=== PATIENT | female | born 1950 | race Caucasian/White ===

== ENCOUNTER → 2024-08-17 07:54 | Outpatient (CLI) | payer MEDICARE, OTHER, SELFPAY ==
--- NOTE | 2024-08-17 | DI.MRI.S_ITS ---
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 After the administration of contrast, axial/sagittal/coronal T1 spin echo with fat saturation through the left humerus. COMPARISON: [facility], CR, XR SHOULDER 2+ VIEWS LEFT, 07/13/2024, 10:40. FINDINGS: Image quality: Excellent. Bones: Healing fracture is noted at the distal clavicle with very mild edema, not well seen on this exam that is tailored for evaluation of the humerus. No acute humeral fracture. No suspicious osseous lesion or osseous mass. No suspicious postcontrast osseous enhancement in the humerus. Soft tissues: Hyperintense signal is seen adjacent to the left posterior upper ribs on coronal STIR and fat suppressed T1-weighted sequences, which may be related to inhomogeneous fat saturation related to adjacent aerated lung versus non artifactual signal of uncertain etiology, possibly soft tissue or osseous edema including possibly a nondisplaced rib fracture. No enhancing soft tissue mass. No significant axillary lymphadenopathy. The visualized musculature is normal in signal intensity and bulk. The internal structures of the elbow and shoulder are not well evaluated on this exam. IMPRESSION: 1. No significant osseous abnormality in the humerus. No suspicious osseous mass. 2. Healing fracture of the distal clavicle with mild residual edema. 3. Abnormal signal in the region of the posterior left 2nd rib is partially seen at the margins of the field of view of this exam, and may be artifactual related to adjacent aerated lung versus secondary to a nondisplaced rib fracture or other osseous or soft tissue lesion. Approved by: Rob Ruiz M.D. on 08/17/2024 at 12:26
--- NOTE | 2024-08-17 | DI.MRI.S_ITS ---
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 [facility], CR, XR CLAVICLE LEFT, 07/13/2024, 10:40. [facility], CR, XR SHOULDER 2+ VIEWS LEFT, 07/13/2024, 10:40. FINDINGS: Image quality: Fair; motion artifact and poor signal to noise ratio on some sequences limits evaluation. Additionally, the patient was unable to tolerate the full exam due to pain. As a result, intravenous contrast was not administered for this examination. Bones: Mild marrow edema is present at the distal clavicle (12/16; 7/4; 10/17). Additional marrow edema is present around the left 2nd/3rd lateral ribs (6/8-12) with persistent T1 hyperintensity on the T1 fat saturated sequence (13/10). The bone marrow signal is otherwise normal. There is no acute fracture or dislocation. Acromioclavicular joint: Minimal osteoarthritis. There is a type 2 acromion. Glenohumeral joint: Mild osteoarthritis. There is no significant joint effusion. Labrum: The labrum is normal within the limits of the examination. Cartilage: There is no significant articular cartilage defect. Subacromial-subdeltoid bursa: There is no significant amount of fluid in the subacromial-subdeltoid bursa. Rotator cuff: There is mild supraspinatus tendinosis. The infraspinatus tendon is intact. The subscapularis tendon is intact. The teres minor tendon is intact. Long head of biceps tendon: The long head of the biceps tendon is present within the bicipital groove and intact. Musculature: There is mild supraspinatus muscle atrophy. Muscle bulk is otherwise preserved without evidence of denervation or fatty atrophy. Inferior glenohumeral ligaments/Axillary pouch: The axillary pouch is normal in thickness and signal. Coracoclavicular and coracoacromial ligaments: The coracoclavicular and coracoacromial ligaments are normal. Other: No left axillary lymphadenopathy. IMPRESSION: 1. Limited examination due to lack of intravenous contrast and technical factors. 2. No MR evidence of malignancy on this noncontrast examination. 3. Subacute, healing distal clavicular fracture with associated reactive marrow edema, possible additional minimally displaced fractures of the left 2nd/3rd lateral ribs, and mild intramuscular edema /hemorrhage within the adjacent innermost intercostal muscles. Dictated by: Pacheco Gibbs M.D. on 08/19/2024 at 9:39 Approved by: Pacheco Gibbs M.D. on 08/19/2024 at 10:23
== END ==
PROVIDERS: Referring Provider Orthopaedic Surgery Sports Medicine; Visit Provider Orthopaedic Surgery Sports Medicine
DX: S42.032D Displaced fracture of lateral end of left clavicle, subsequent encounter for fracture with routine healing (principal); M19.012 Primary osteoarthritis, left shoulder; M25.412 Effusion, left shoulder; M25.512 Pain in left shoulder
CPT/HCPCS: 73220; 73221; A9579